=== PATIENT | male | born 1960 | race Caucasian/White ===

== ENCOUNTER 2021-10-19 22:33 | Inpatient (IN) | payer SELFPAY ==
[~2021-10-19 22:33] MED LIST: Iopamidol-370 76% 500 ML 1 ML ONE
[2021-10-19] MEDS ORDERED: Nitroglycerin 0.4 MG TAB 1 EACH ONE (22:54)
[2021-10-19 23:00] LABS: Hemoglobin 16.8 g/dL (14.0-18.0); Mean Corpuscular HGB CONC 33.9 g/dL (32.0-36.0); Mean Corpuscular Hemoglobin 33.7 pg (27.0-31.0); Mean Corpuscular Volume 99.5 fL (78.0-98.0); RBC Distribution Width 13.6 % (11.5-14.5); Red Blood Cell (RBC) Count 4.99 mill/uL (4.70-6.10)
[2021-10-19] MEDS ORDERED: Metoprolol Tartrate 5 MG/5 ML VIAL ONE (23:06)
[2021-10-19 23:14] LABS: #Eosinphils 0.1 thou/uL (0.0-0.7); #Lymphocytes 1.4 thou/uL (1.20-3.40); #Monocytes 0.9 thou/uL (0.11-0.59); #Neutrophils 6.6 thou/uL (1.40-6.50); %Basophils 0.4 % (0.0-1.0); %Eosinophils 1.2 % (0.0-10.0); %Lymphocytes 15.7 % (21.0-51.0); %Monocytes 9.5 % (0.0-10.0); %Neutrophils 73.2 % (42.0-75.0); Mean Platelet Volume 8.5 fL (7.4-10.4); Platelet Count 110 thou/uL (130-400); Platelet Morphology Comment Appears Decreased
[2021-10-19 23:18] LABS: ALT (SGPT) 30 U/L (8-55); AST (SGOT) 36 U/L (5-34); Albumin 4.8 g/dL (3.5-5.0); Alkaline Phosphatase 107 U/L (40-110); Anion Gap 19 mmol/L (10-20); BUN (Urea Nitrogen) 6 mg/dL (8.4-25.7); Bilirubin, Total 1.3 mg/dL (0.2-1.2); Calc. Creatinine Clearance 0 mL/min (70-130); Calcium 10.2 mg/dL (7.8-10.44); Carbon Dioxide 23 mmol/L (22-29); Chloride 100 mmol/L (98-107); Estimated GFR 103; Globulin 3.7 g/dL (2.4-3.5); Glucose 100 mg/dL (70-105); Lipase 164 U/L (8-78); Potassium 3.5 mmol/L (3.5-5.1); Protein, Total 8.5 g/dL (6.0-8.3); Sodium 138 mmol/L (136-145)
[2021-10-20] MEDS ORDERED: Aspirin 81 mg Enteric Coated Tablet ONE (00:04)
[2021-10-20] MEDS ORDERED: Aspirin Chewable 81 MG TAB ONE (00:05)
[2021-10-20] MEDS ORDERED: Nitroglycerin 2% Ointment 1 INCH/1 GM Packet ONE (00:31)
[2021-10-20] MEDS ORDERED: Acetaminophen 325 MG TAB PO PRN (01:42)
[2021-10-20] MEDS ORDERED: Gabapentin 300 MG CAP PO PRN (02:43)
[2021-10-20] MEDS ORDERED: hydrALAZINE 20 MG/ML VIAL SLOW IVP PRN (02:44)
[2021-10-20 04:03] VITALS: BMI 26.3
[2021-10-20 05:18] LABS: Troponin I 0.019 ng/mL (< 0.028)
[2021-10-20] MEDS: Enoxaparin Sodium 40 MG/0.4 ML SYRINGE SC SCH (08:51)
[2021-10-20] MEDS ORDERED: Regadenoson 0.4 MG/5 ML SYRINGE ONE (08:55)
[2021-10-20] MEDS ORDERED: Lisinopril 20 MG TAB PO SCH (09:00)
[2021-10-20] MEDS: Hydrochlorothiazide 25 MG TAB PO SCH (13:20)
[2021-10-20] MEDS ORDERED: Atenolol 50 MG TAB PO SCH (17:30)
[2021-10-20] MEDS ORDERED: Loratadine 5 MG/5 ML UDCUP PO SCH (18:00)
[2021-10-21] MEDS: Hydrochlorothiazide 25 MG TAB PO SCH (08:42)
[2021-10-21] MEDS: Enoxaparin Sodium 40 MG/0.4 ML SYRINGE SC SCH (08:44)
[2021-10-21] MEDS ORDERED: Iopamidol 370 76% 100 ML VIAL ONE (08:52)
[2021-10-21] MEDS ORDERED: Cetirizine HCl 5 MG/5 ML UDCUP PO SCH (09:00)
[2021-10-21] MEDS ORDERED: Atenolol 50 MG TAB PO SCH (09:00)
[2021-10-21] MEDS ORDERED: Communication Order-Pharmacy FS SCH (09:45)
[2021-10-21] MEDS ORDERED: Lidocaine 1% 50ML VIAL ONE (10:17)
[2021-10-21] MEDS ORDERED: Midazolam HCl 2 mg/2 ml Vial ONE (11:35)
[2021-10-21] MEDS ORDERED: Acetaminophen/Codeine 30-300mg Tablet PO PRN ×2 (12:00)
[2021-10-21] MEDS ORDERED: Nitroglycerin 0.4 MG TAB (25 Tab Bottle) SL PRN (12:00)
[2021-10-21] MEDS ORDERED: Sodium Chloride 0.9% 200 ML IV PRN (12:00)
[2021-10-21] MEDS: Loratadine 5 MG/5 ML UDCUP PO SCH (13:29)
[2021-10-21 16:11] LABS: ALT (SGPT) 26 U/L (8-55); AST (SGOT) 28 U/L (5-34); Albumin 4.2 g/dL (3.5-5.0); Alkaline Phosphatase 96 U/L (40-110); Anion Gap 16 mmol/L (10-20); BUN (Urea Nitrogen) 10 mg/dL (8.4-25.7); Bilirubin, Total 0.9 mg/dL (0.2-1.2); Calc. Creatinine Clearance 112 mL/min (70-130); Calcium 9.2 mg/dL (7.8-10.44); Carbon Dioxide 21 mmol/L (22-29); Chloride 106 mmol/L (98-107); Estimated GFR 101; Globulin 3.5 g/dL (2.4-3.5); Glucose 108 mg/dL (70-105); Potassium 3.4 mmol/L (3.5-5.1); Protein, Total 7.7 g/dL (6.0-8.3); Sodium 140 mmol/L (136-145)
[2021-10-22] MEDS: Loratadine 5 MG/5 ML UDCUP PO SCH (09:27)
[2021-10-22] MEDS: Hydrochlorothiazide 25 MG TAB PO SCH (09:27)
[2021-10-22 10:45] LABS: #Eosinphils 0.2 thou/uL (0.0-0.7); #Lymphocytes 1.1 thou/uL (1.20-3.40); #Monocytes 0.8 thou/uL (0.11-0.59); %Basophils 0.4 % (0.0-1.0); %Lymphocytes 11.7 % (21.0-51.0); %Monocytes 9.1 % (0.0-10.0); %Neutrophils 76.7 % (42.0-75.0); Hemoglobin 15.6 g/dL (14.0-18.0); Mean Corpuscular Hemoglobin 33.3 pg (27.0-31.0); Mean Platelet Volume 8.4 fL (7.4-10.4); Platelet Count 107 thou/uL (130-400); RBC Distribution Width 13.4 % (11.5-14.5); Red Blood Cell (RBC) Count 4.69 mill/uL (4.70-6.10); White Blood Cell (WBC) Count 9.2 thou/uL (4.8-10.8)
[2021-10-22 11:06] LABS: Cardiac Risk 1.8 (Less than 4.5)
[2021-10-22 11:20] VITALS: TEMP 98
[2021-10-22 15:26] VITALS: BP 158/92
== END 2021-10-22 16:22 | disposition home or self-care (01) | DRG 286 ==
LOC: ERS 22:33 → 2NO 10-20 01:26 → OBSVTOIN 10-21 09:15
PROVIDERS: ADMIT Student in an Organized Health Care Education/Training Program; ATTEND Student in an Organized Health Care Education/Training Program
PROC: 4A023N7 Measurement of Cardiac Sampling and Pressure, Left Heart, Percutaneous Approach (ICD-10-PCS; principal; 2021-10-21)
PROC: B2111ZZ Fluoroscopy of Multiple Coronary Arteries using Low Osmolar Contrast (ICD-10-PCS; 2021-10-21)
PROC: B2151ZZ Fluoroscopy of Left Heart using Low Osmolar Contrast (ICD-10-PCS; 2021-10-21)
DX: I11.0 Hypertensive heart disease with heart failure (principal); I50.21 Acute systolic (congestive) heart failure; I16.9 Hypertensive crisis, unspecified; I42.9 Cardiomyopathy, unspecified; I50.30 Unspecified diastolic (congestive) heart failure; R07.89 Other chest pain; G62.9 Polyneuropathy, unspecified; K21.9 Gastro-esophageal reflux disease without esophagitis; N40.0 Benign prostatic hyperplasia without lower urinary tract symptoms; I16.0 Hypertensive urgency; K76.0 Fatty (change of) liver, not elsewhere classified; E88.09 Other disorders of plasma-protein metabolism, not elsewhere classified; E78.5 Hyperlipidemia, unspecified; I34.0 Nonrheumatic mitral (valve) insufficiency; Z20.822 Contact with and (suspected) exposure to COVID-19
CPT/HCPCS: 36415; 71045; 71275; 74174; 78452; 80053; 80061; 83036; 83690; 83880; 84484; 85025; 93005; 93017; 93306; 93458; 94760; 96372; 96374; 99152; A9500; C1769; G0378; J1650; J2250; J2785; J3490; Q9967; U0003; U0005

== ENCOUNTER 2021-11-04 08:38 | Emergency (ER) | payer SELFPAY ==
[2021-11-04 09:06] LABS: #Basophils 0.1 thou/uL (0.0-0.2); #Eosinphils 0.2 thou/uL (0.0-0.7); #Lymphocytes 1.7 thou/uL (1.20-3.40); #Monocytes 0.8 thou/uL (0.11-0.59); #Neutrophils 6.3 thou/uL (1.40-6.50); %Basophils 0.6 % (0.0-1.0); %Eosinophils 1.9 % (0.0-10.0); %Monocytes 8.3 % (0.0-10.0); %Neutrophils 70.3 % (42.0-75.0); Hemoglobin 16.5 g/dL (14.0-18.0); Mean Corpuscular HGB CONC 33.9 g/dL (32.0-36.0); Mean Corpuscular Hemoglobin 33.7 pg (27.0-31.0); Mean Corpuscular Volume 99.5 fL (78.0-98.0); Mean Platelet Volume 7.3 fL (7.4-10.4); Platelet Count 195 thou/uL (130-400); RBC Distribution Width 13.4 % (11.5-14.5); Red Blood Cell (RBC) Count 4.88 mill/uL (4.70-6.10)
[2021-11-04 09:27] LABS: ALT (SGPT) 33 U/L (8-55); AST (SGOT) 34 U/L (5-34); Albumin 4.5 g/dL (3.5-5.0); Alkaline Phosphatase 105 U/L (40-110); Anion Gap 18 mmol/L (10-20); BUN (Urea Nitrogen) 6 mg/dL (8.4-25.7); Bilirubin, Total 1.3 mg/dL (0.2-1.2); Calc. Creatinine Clearance 0 mL/min (70-130); Calcium 9.6 mg/dL (7.8-10.44); Carbon Dioxide 22 mmol/L (22-29); Chloride 96 mmol/L (98-107); Estimated GFR 101; Globulin 3.3 g/dL (2.4-3.5); Glucose 124 mg/dL (70-105); Lipase 149 U/L (8-78); Protein, Total 7.8 g/dL (6.0-8.3); Sodium 133 mmol/L (136-145)
[2021-11-04] MEDS ORDERED: Potassium Chloride 20 MEQ TAB ONE (10:03)
[2021-11-04 10:18] LABS: Magnesium 1.9 mg/dL (1.6-2.6)
[2021-11-04] MEDS ORDERED: Nitroglycerin 0.4 MG TAB 1 EACH ONE ×2 (11:30→11:32)
== END 2021-11-04 13:52 | disposition home or self-care (01) ==
LOC: ERS 08:38
DX: I10 Essential (primary) hypertension (principal); E87.6 Hypokalemia; F17.290 Nicotine dependence, other tobacco product, uncomplicated; Z79.899 Other long term (current) drug therapy
CPT/HCPCS: 36415; 71045; 80053; 83690; 83735; 83880; 84484; 85025; 93005; 94760

== ENCOUNTER 2022-02-24 01:19 | Emergency (ER) | payer SELFPAY ==
[2022-02-24 02:44] LABS: #Basophils 0.1 thou/uL (0.0-0.2); #Eosinphils 0.3 thou/uL (0.0-0.7); #Lymphocytes 2.2 thou/uL (1.20-3.40); #Monocytes 0.8 thou/uL (0.11-0.59); #Neutrophils 9.4 thou/uL (1.40-6.50); %Basophils 0.4 % (0.0-1.0); %Eosinophils 2.6 % (0.0-10.0); %Lymphocytes 17.3 % (21.0-51.0); %Monocytes 6.5 % (0.0-10.0); %Neutrophils 73.2 % (42.0-75.0); Hemoglobin 14.4 g/dL (14.0-18.0); Mean Corpuscular HGB CONC 36.3 g/dL (32.0-36.0); Mean Corpuscular Hemoglobin 35.2 pg (27.0-31.0); Mean Platelet Volume 7.6 fL (7.4-10.4); Platelet Count 188 10x3/uL (130-400); RBC Distribution Width 11.6 % (11.5-14.5); White Blood Cell (WBC) Count 12.8 10x3/uL (4.8-10.8)
[2022-02-24 02:59] LABS: Acetaminophen Less than 10.0 mcg/mL (10.0-30.0); Alcohol 145 mg/dL (Less than 10); Salicylate Less than 8.0 mg/dL (15.0-30.0)
[2022-02-24 03:00] LABS: ALT (SGPT) 20 U/L (8-55); AST (SGOT) 21 U/L (5-34); Albumin 4.2 g/dL (3.4-4.8); Alcohol 139 mg/dL (Less than 10); Alkaline Phosphatase 77 U/L (40-110); Anion Gap 15 mmol/L (10-20); BUN (Urea Nitrogen) 9 mg/dL (8.4-25.7); Bilirubin, Total 0.3 mg/dL (0.2-1.2); Calc. Creatinine Clearance 0 mL/min (70-130); Calcium 9.2 mg/dL (7.8-10.44); Carbon Dioxide 25 mmol/L (23-31); Chloride 102 mmol/L (98-107); Estimated GFR 103; Globulin 2.9 g/dL (2.4-3.5); Glucose 88 mg/dL (80-115); Potassium 3.6 mmol/L (3.5-5.1); Protein, Total 7.1 g/dL (5.8-8.1); Sodium 138 mmol/L (136-145)
== END 2022-02-24 04:16 | disposition home or self-care (01) ==
LOC: ERS 01:19
DX: S30.0XXA Contusion of lower back and pelvis, initial encounter (principal); S00.81XA Abrasion of other part of head, initial encounter; F10.129 Alcohol abuse with intoxication, unspecified; I11.0 Hypertensive heart disease with heart failure; I50.9 Heart failure, unspecified; F17.210 Nicotine dependence, cigarettes, uncomplicated; X58.XXXA Exposure to other specified factors, initial encounter
CPT/HCPCS: 36415; 70450; 72125; 72128; 72131; 80053; 80307; 85025

== ENCOUNTER 2022-04-15 04:15 | Observation (INO) | payer OTHER, SELFPAY ==
[2022-04-15] MEDS ORDERED: Aspirin Chewable 81 MG TAB ONE (04:42)
[2022-04-15] MEDS ORDERED: Ondansetron PF 4 MG/2 ML Vial ONE (04:45)
[2022-04-15 05:49] LABS: Acetaminophen Less than 10.0 mcg/mL (10.0-30.0); Alcohol 86 mg/dL (Less than 10); Salicylate Less than 8.0 mg/dL (15.0-30.0)
[2022-04-15 05:54] LABS: ALT (SGPT) 17 U/L (8-55); AST (SGOT) 33 U/L (5-34); Albumin 3.9 g/dL (3.4-4.8); Alkaline Phosphatase 108 U/L (40-110); Anion Gap 24 mmol/L (10-20); BUN (Urea Nitrogen) 8 mg/dL (8.4-25.7); Bilirubin, Total 0.8 mg/dL (0.2-1.2); Calc. Creatinine Clearance 0 mL/min (70-130); Calcium 8.6 mg/dL (7.8-10.44); Carbon Dioxide 15 mmol/L (23-31); Chloride 101 mmol/L (98-107); Estimated GFR 106; Glucose 85 mg/dL (80-115); Potassium 4.2 mmol/L (3.5-5.1); Protein, Total 6.9 g/dL (5.8-8.1); Sodium 136 mmol/L (136-145)
[2022-04-15 06:46] LABS: Hemoglobin 15.4 g/dL (14.0-18.0); Mean Corpuscular HGB CONC 35.4 g/dL (32.0-36.0); Mean Corpuscular Hemoglobin 35.8 pg (27.0-31.0); RBC Distribution Width 12.3 % (11.5-14.5); Red Blood Cell (RBC) Count 4.31 mill/uL (4.70-6.10); White Blood Cell (WBC) Count 8.2 10x3/uL (4.8-10.8)
[2022-04-15 07:01] LABS: #Monocytes 0.5 thou/uL (0.11-0.59); #Neutrophils 6.6 thou/uL (1.40-6.50); %Basophils 0.3 % (0.0-1.0); %Eosinophils 0.4 % (0.0-10.0); %Lymphocytes 12.4 % (21.0-51.0); %Monocytes 6.2 % (0.0-10.0); %Neutrophils 80.6 % (42.0-75.0); Mean Platelet Volume 7.9 fL (7.4-10.4); Platelet Count 91 10x3/uL (130-400); Platelet Morphology Comment Appears Decreased; RBC Morphology Normal
[2022-04-15] MEDS ORDERED: LORazepam 2 MG/ML SYR.(CARPUJECT) ONE ×3 (07:13→12:51)
[2022-04-15] MEDS ORDERED: chlordiazePOXIDE HCl 25 MG CAP ONE (08:32)
[2022-04-15] MEDS ORDERED: cloNIDine 0.1 MG TAB PO PRN (09:48)
[2022-04-15] MEDS ORDERED: Lorazepam 2 MG/ML VIAL IM PRN (09:49)
[2022-04-15] MEDS ORDERED: Lorazepam 1 MG TAB PO PRN (09:49)
[2022-04-15] MEDS ORDERED: Ondansetron ODT 4 MG TAB PO PRN (09:49)
[2022-04-15] MEDS ORDERED: Acetaminophen 325 MG TAB PO PRN (09:51)
[2022-04-15] MEDS ORDERED: Senokot S 8.6-50 MG TAB PO PRN (09:51)
[2022-04-15] MEDS ORDERED: Calcium Carbonate 500 MG ChewTAB PO PRN (09:51)
[2022-04-15] MEDS ORDERED: Multivitamins, Adult 10 ML, Folic Acid 1 MG, Thiamine HCl 100 MG in Dextrose 5 %-0.45 %... IV SCH (10:00)
[2022-04-15] MEDS ORDERED: Thiamine HCl 100 MG, Folic Acid 1 MG in Dextrose 5 %-0.45 % NaCl 1,000 ML IVPB SCH (10:00)
[2022-04-15] MEDS ORDERED: Multivitamins, Adult 10 ML, Thiamine HCl 100 MG, Folic Acid 1 MG in Dextrose 5 %-0.45 %... IV SCH (10:00)
[2022-04-15] MEDS ORDERED: Electrolyte Replacement Protocol 1 EACH FS SCH (10:00)
[2022-04-15] MEDS ORDERED: Electrolyte Replacement Protocol 1 EACH FS PRN (10:00)
[2022-04-15 10:20] LABS: Troponin I Less than 0.010 ng/mL (< 0.028)
[2022-04-15 11:33] LABS: INR-International Normal Ratio 0.9; Prothrombin Time 12.4 sec (12.0-14.7)
[2022-04-15 11:40] LABS: Lactic Acid 0.6 mmol/L (0.5-2.2)
[2022-04-15 11:44] LABS: Anion Gap 18 mmol/L (10-20); BUN (Urea Nitrogen) 9 mg/dL (8.4-25.7); Calc. Creatinine Clearance 0 mL/min (70-130); Calcium 8.7 mg/dL (7.8-10.44); Carbon Dioxide 22 mmol/L (23-31); Chloride 100 mmol/L (98-107); Estimated GFR 104; Glucose 92 mg/dL (80-115); Magnesium 2.2 mg/dL (1.6-2.6); Phosphorus 3.4 mg/dL (2.3-4.7); Potassium 4.4 mmol/L (3.5-5.1); Sodium 136 mmol/L (136-145)
[2022-04-15] MEDS ORDERED: Electrolyte Replacement Protocol FS PRN (11:45)
[2022-04-15] MEDS ORDERED: Folic Acid 1 MG TAB PO SCH (11:45)
[2022-04-15] MEDS ORDERED: Multivit, Therapeutic 1 TAB PO SCH (11:45)
[2022-04-15 11:50] LABS: Troponin I Less than 0.010 ng/mL (< 0.028)
[2022-04-15] MEDS ORDERED: Thiamine HCl 200 MG/2 ML VIAL SLOW IVP SCH (12:00)
[2022-04-15] MEDS ORDERED: Folic Acid 1 MG TAB ONE (12:51)
[2022-04-15] MEDS ORDERED: Lorazepam 1 MG TAB ONE (13:00)
[2022-04-15] MEDS: Lorazepam 1 MG TAB PO SCH ×3 (13:01→23:44)
[2022-04-15] MEDS ORDERED: Iopamidol-370 76% 500 ML 1 ML ONE (17:11)
[2022-04-15 17:29] VITALS: BMI 29.9
[2022-04-15] MEDS ORDERED: Famotidine 20 MG TAB PO SCH (21:00)
[2022-04-15] MEDS ORDERED: Cyanocobalamin (Vitamin B-12) 1,000 MCG TAB PO SCH (21:00)
[2022-04-16 05:01] LABS: #Eosinphils 0.1 thou/uL (0.0-0.7); #Monocytes 0.4 thou/uL (0.11-0.59); #Neutrophils 4.1 thou/uL (1.40-6.50); %Basophils 0.1 % (0.0-1.0); %Eosinophils 1.3 % (0.0-10.0); %Lymphocytes 18.2 % (21.0-51.0); %Monocytes 6.3 % (0.0-10.0); Hemoglobin 13.9 g/dL (14.0-18.0); Mean Corpuscular HGB CONC 35.1 g/dL (32.0-36.0); Mean Corpuscular Hemoglobin 35.7 pg (27.0-31.0); Mean Platelet Volume 8.7 fL (7.4-10.4); Platelet Count 54 10x3/uL (130-400); RBC Distribution Width 12.2 % (11.5-14.5); White Blood Cell (WBC) Count 5.5 10x3/uL (4.8-10.8)
[2022-04-16 05:19] LABS: ALT (SGPT) 17 U/L (8-55); AST (SGOT) 28 U/L (5-34); Albumin 3.7 g/dL (3.4-4.8); Alkaline Phosphatase 99 U/L (40-110); Anion Gap 14 mmol/L (10-20); BUN (Urea Nitrogen) 12 mg/dL (8.4-25.7); Calc. Creatinine Clearance 129 mL/min (70-130); Calcium 8.6 mg/dL (7.8-10.44); Carbon Dioxide 24 mmol/L (23-31); Chloride 100 mmol/L (98-107); Estimated GFR 105; Globulin 2.7 g/dL (2.4-3.5); Glucose 89 mg/dL (80-115); Phosphorus 3.4 mg/dL (2.3-4.7); Potassium 3.6 mmol/L (3.5-5.1); Protein, Total 6.4 g/dL (5.8-8.1); Sodium 134 mmol/L (136-145)
[2022-04-16] MEDS: Lorazepam 1 MG TAB PO SCH (06:12)
[2022-04-16] MEDS ORDERED: Magnesium 2 GM/50 ML(in water) 2 GM in Premix Bag 1 BAG IVPB SCH (08:00)
[2022-04-16] MEDS ORDERED: Hydrochlorothiazide 25 MG TAB PO SCH (09:00)
[2022-04-16] MEDS ORDERED: Non-Formulary Item 1 EACH (Trazodone Hcl [Trazodone Hcl] 100 MG Tablet) PO SCH (09:00)
[2022-04-16] MEDS ORDERED: Multivit, Therapeutic 1 TAB PO SCH (09:00)
[2022-04-16] MEDS ORDERED: VALSARTAN 40 MG PO SCH (09:00)
[2022-04-16] MEDS ORDERED: traZODone HCl 50 MG TAB PO SCH (09:00)
[2022-04-16] MEDS ORDERED: Gabapentin 300 MG CAP PO SCH ×2 (09:00)
[2022-04-16] MEDS ORDERED: Folic Acid 1 MG TAB PO SCH (09:00)
[2022-04-16] MEDS ORDERED: Valsartan 80 MG TAB PO SCH (09:00)
[2022-04-16 09:29] VITALS: TEMP 98.6
[2022-04-16 09:35] VITALS: BP 135/72
[2022-04-16] MEDS ORDERED: Lorazepam 1 MG TAB PO PRN (09:49)
[2022-04-17] MEDS ORDERED: Lorazepam 1 MG TAB PO PRN (09:49)
[2022-04-17] MEDS ORDERED: Lorazepam 0.5 MG TAB PO SCH (18:00)
[2022-04-18] MEDS ORDERED: Lorazepam 0.5 MG TAB PO PRN (09:49)
[2022-04-18] MEDS ORDERED: Thiamine 100 MG TAB PO SCH (12:00)
== END 2022-04-16 11:05 | disposition home or self-care (01) ==
LOC: ERS 04:15 → ERHOLD 11:08 → 2SW 16:47
PROVIDERS: ADMIT Internal Medicine; ATTEND Internal Medicine
DX: I16.0 Hypertensive urgency (principal); I11.0 Hypertensive heart disease with heart failure; I50.22 Chronic systolic (congestive) heart failure; I42.8 Other cardiomyopathies; Z20.822 Contact with and (suspected) exposure to COVID-19; I34.0 Nonrheumatic mitral (valve) insufficiency; E87.29 Other acidosis; E87.1 Hypo-osmolality and hyponatremia; F10.229 Alcohol dependence with intoxication, unspecified; F17.210 Nicotine dependence, cigarettes, uncomplicated; N40.0 Benign prostatic hyperplasia without lower urinary tract symptoms; D53.9 Nutritional anemia, unspecified; G62.9 Polyneuropathy, unspecified; Z95.5 Presence of coronary angioplasty implant and graft; Z79.899 Other long term (current) drug therapy; Y90.4 Blood alcohol level of 80-99 mg/100 ml
CPT/HCPCS: 36415; 71045; 71275; 80053; 80307; 82010; 83605; 83735; 83880; 84100; 84484; 85025; 85379; 85610; 85730; 93005; 96367; 96375; G0378; J2060; J2405; J3411; J3475; J7042; Q9967; U0003; U0005

== ENCOUNTER 2022-05-10 14:05 | Emergency (ER) | payer OTHER | END 2022-05-10 15:00 | LOC: ERS 14:05 | DX: Z02.89 Encounter for other administrative examinations (principal) | CPT/HCPCS: 99282 ==

== ENCOUNTER 2022-05-11 20:25 | Observation (INO) | payer OTHER ==
[2022-05-11 21:14] LABS: #Eosinphils 0.2 thou/uL (0.0-0.7); #Lymphocytes 1.6 thou/uL (1.20-3.40); #Monocytes 0.8 thou/uL (0.11-0.59); %Basophils 0.5 % (0.0-1.0); %Eosinophils 2.1 % (0.0-10.0); %Lymphocytes 21.5 % (21.0-51.0); %Monocytes 10.1 % (0.0-10.0); %Neutrophils 65.8 % (42.0-75.0); Hemoglobin 13.7 g/dL (14.0-18.0); Mean Corpuscular HGB CONC 34.8 g/dL (32.0-36.0); Mean Corpuscular Hemoglobin 34.9 pg (27.0-31.0); Mean Platelet Volume 7.8 fL (7.4-10.4); Platelet Count 130 10x3/uL (130-400); RBC Distribution Width 12.3 % (11.5-14.5); Red Blood Cell (RBC) Count 3.93 mill/uL (4.70-6.10); White Blood Cell (WBC) Count 7.5 10x3/uL (4.8-10.8)
[2022-05-11 21:33] LABS: ALT (SGPT) 15 U/L (8-55); AST (SGOT) 23 U/L (5-34); Albumin 3.8 g/dL (3.4-4.8); Alkaline Phosphatase 105 U/L (40-110); Anion Gap 15 mmol/L (10-20); BUN (Urea Nitrogen) 7 mg/dL (8.4-25.7); Bilirubin, Total 0.4 mg/dL (0.2-1.2); Calc. Creatinine Clearance 0 mL/min (70-130); Calcium 8.4 mg/dL (7.8-10.44); Carbon Dioxide 20 mmol/L (23-31); Chloride 104 mmol/L (98-107); Estimated GFR 105; Globulin 2.7 g/dL (2.4-3.5); Glucose 100 mg/dL (80-115); Lipase 106 U/L (8-78); Potassium 3.7 mmol/L (3.5-5.1); Protein, Total 6.5 g/dL (5.8-8.1); Sodium 135 mmol/L (136-145)
[2022-05-11] MEDS ORDERED: Aspirin Chewable 81 MG TAB ONE (21:38)
[2022-05-11 22:14] LABS: Acetaminophen Less than 10.0 mcg/mL (10.0-30.0); Alcohol 272 mg/dL (Less than 10); Salicylate Less than 8.0 mg/dL (15.0-30.0)
[2022-05-12] MEDS ORDERED: Lorazepam 2 MG/ML VIAL SLOW IVP PRN (00:20)
[2022-05-12] MEDS ORDERED: LORazepam 2 MG/ML SYR.(CARPUJECT) ONE (00:27)
[2022-05-12] MEDS ORDERED: Ondansetron PF 4 MG/2 ML Vial IVP PRN (00:30)
[2022-05-12] MEDS ORDERED: Ondansetron ODT 4 MG TAB SL PRN (00:30)
[2022-05-12] MEDS ORDERED: Lorazepam 2 MG/ML VIAL IM PRN (01:07)
[2022-05-12] MEDS ORDERED: Ondansetron ODT 4 MG TAB PO PRN (01:07)
[2022-05-12] MEDS ORDERED: Acetaminophen 325 MG TAB PO PRN (01:10)
[2022-05-12] MEDS ORDERED: Acetaminophen 650 MG Suppository PR PRN (01:10)
[2022-05-12] MEDS ORDERED: Nitroglycerin 0.4 MG TAB (25 Tab Bottle) SL PRN (01:10)
[2022-05-12] MEDS ORDERED: Pantoprazole 40 MG VIAL IVP SCH ×2 (01:15→09:00)
[2022-05-12] MEDS ORDERED: Electrolyte Replacement Protocol 1 EACH FS SCH (01:15)
[2022-05-12] MEDS ORDERED: Thiamine HCl 200 MG/2 ML VIAL SLOW IVP SCH (01:15)
[2022-05-12] MEDS ORDERED: Sodium Chloride 0.9% 1,000 ML IV SCH (07:15)
[2022-05-12 07:46] LABS: #Eosinphils 0.1 thou/uL (0.0-0.7); #Lymphocytes 1.3 thou/uL (1.20-3.40); #Monocytes 0.5 thou/uL (0.11-0.59); #Neutrophils 4.8 thou/uL (1.40-6.50); %Basophils 0.5 % (0.0-1.0); %Eosinophils 2.2 % (0.0-10.0); %Lymphocytes 18.7 % (21.0-51.0); %Monocytes 7.9 % (0.0-10.0); %Neutrophils 70.7 % (42.0-75.0); Hemoglobin 13.8 g/dL (14.0-18.0); Mean Corpuscular Hemoglobin 33.5 pg (27.0-31.0); Mean Platelet Volume 7.8 fL (7.4-10.4); Platelet Count 127 10x3/uL (130-400); RBC Distribution Width 12.3 % (11.5-14.5); Red Blood Cell (RBC) Count 4.12 mill/uL (4.70-6.10); White Blood Cell (WBC) Count 6.7 10x3/uL (4.8-10.8)
[2022-05-12] MEDS ORDERED: Magnesium 2 GM/50 ML(in water) 2 GM in Premix Bag 1 BAG IVPB SCH (08:00)
[2022-05-12 08:11] LABS: Troponin I Less than 0.010 ng/mL (< 0.028)
[2022-05-12 08:13] LABS: Anion Gap 18 mmol/L (10-20); BUN (Urea Nitrogen) 7 mg/dL (8.4-25.7); Calc. Creatinine Clearance 0 mL/min (70-130); Calcium 8.8 mg/dL (7.8-10.44); Carbon Dioxide 20 mmol/L (23-31); Chloride 106 mmol/L (98-107); Estimated GFR 105; Glucose 77 mg/dL (80-115); Magnesium 1.8 mg/dL (1.6-2.6); Phosphorus 3.4 mg/dL (2.3-4.7); Potassium 3.5 mmol/L (3.5-5.1); Sodium 140 mmol/L (136-145)
[2022-05-12] MEDS ORDERED: Acetaminophen 325 MG TAB ONE (08:30)
[2022-05-12] MEDS ORDERED: Thiamine 100 MG TAB ONE ×2 (08:30→08:59)
[2022-05-12] MEDS ORDERED: Pantoprazole 40 MG VIAL ONE (08:30)
[2022-05-12] MEDS ORDERED: Potassium Chloride 20 MEQ TAB PO SCH (08:30)
[2022-05-12] MEDS ORDERED: Lorazepam 1 MG TAB ONE ×3 (08:41→14:46)
[2022-05-12] MEDS: Lorazepam 1 MG TAB PO SCH ×2 (08:46→08:47)
[2022-05-12] MEDS: Lorazepam 1 MG TAB PO PRN ×3 (08:46→15:06)
[2022-05-12] MEDS: Lactated Ringer's 1,000 ML IV SCH ×2 (08:47→12:23)
[2022-05-12] MEDS ORDERED: Aspirin Chewable 81 MG TAB ONE (08:55)
[2022-05-12] MEDS ORDERED: Potassium Chloride 20 MEQ TAB ONE (08:55)
[2022-05-12] MEDS ORDERED: Folic Acid 1 MG TAB ONE (08:55)
[2022-05-12] MEDS ORDERED: Folic Acid 1 MG TAB PO SCH (09:00)
[2022-05-12] MEDS ORDERED: VALSARTAN 40 MG PO SCH (09:00)
[2022-05-12] MEDS ORDERED: Valsartan 80 MG TAB PO SCH (09:00)
[2022-05-12] MEDS ORDERED: Multivit, Therapeutic 1 TAB PO SCH (09:00)
[2022-05-12] MEDS ORDERED: Hydrochlorothiazide 25 MG TAB PO SCH (09:00)
[2022-05-12] MEDS ORDERED: Aspirin Chewable 81 MG TAB PO SCH (09:00)
[2022-05-12] MEDS ORDERED: traMADol HCl 50 MG TAB PO PRN (12:01)
[2022-05-12] MEDS ORDERED: Ondansetron ODT 4 MG TAB ONE (12:19)
[2022-05-12] MEDS ORDERED: traMADol HCl 50 MG TAB ONE (12:19)
[2022-05-12 12:50] LABS: Amphetamine Not Detected (NotDetected); Barbiturates Screen Not Detected (NotDetected); Benzodiazepine Screen Detected (NotDetected); Cocaine Metabolite Screen Not Detected (NotDetected); Methadone Not Detected (NotDetected); Methamphetamine Not Detected (NotDetected); Opiate Screen Not Detected (NotDetected); Oxycodone Screen Not Detected (NotDetected); Phencyclidine (PCP) Not Detected (NotDetected); THC/Cannabinoid Screen Not Detected (NotDetected); Tricyclic Screen Not Detected (NotDetected)
[2022-05-12] MEDS ORDERED: cloNIDine 0.1 MG TAB PO PRN (15:14)
[2022-05-12] MEDS ORDERED: Nicotine 14 MG PATCH TD PRN (15:16)
[2022-05-12 15:34] VITALS: BP 158/94; TEMP 98.2
[2022-05-12] MEDS ORDERED: traZODone HCl 50 MG TAB PO SCH (21:00)
[2022-05-13] MEDS ORDERED: Lorazepam 1 MG TAB PO PRN (01:07)
[2022-05-13] MEDS ORDERED: Gabapentin 300 MG CAP PO SCH (09:00)
[2022-05-13] MEDS ORDERED: Spironolactone 25 MG TAB PO SCH (09:00)
[2022-05-13] MEDS ORDERED: Multivit, Therapeutic 1 TAB PO SCH (09:00)
[2022-05-14] MEDS ORDERED: Lorazepam 1 MG TAB PO PRN (01:07)
[2022-05-14] MEDS ORDERED: Lorazepam 0.5 MG TAB PO SCH (01:15)
[2022-05-15] MEDS ORDERED: Lorazepam 0.5 MG TAB PO PRN (01:07)
[2022-05-15] MEDS ORDERED: Thiamine 100 MG TAB PO SCH (09:00)
== END 2022-05-12 16:34 | disposition home or self-care (01) ==
LOC: ERS 20:25 → ERHOLD 05-12 00:11 → INTOOBSV 05-12 00:11
PROVIDERS: ADMIT Internal Medicine; ATTEND Internal Medicine
DX: R07.2 Precordial pain (principal); R10.13 Epigastric pain; F10.229 Alcohol dependence with intoxication, unspecified; I16.0 Hypertensive urgency; I11.0 Hypertensive heart disease with heart failure; I50.22 Chronic systolic (congestive) heart failure; N40.0 Benign prostatic hyperplasia without lower urinary tract symptoms; E87.1 Hypo-osmolality and hyponatremia; E83.42 Hypomagnesemia; E87.6 Hypokalemia; D53.9 Nutritional anemia, unspecified; I34.0 Nonrheumatic mitral (valve) insufficiency; Z79.899 Other long term (current) drug therapy; Y90.8 Blood alcohol level of 240 mg/100 ml or more
CPT/HCPCS: 36415; 36416; 71045; 80048; 80053; 80306; 80307; 83690; 83735; 84100; 84484; 85025; 93005; 96374; 99282; C9113; J2060; J3411; J3475; J7050; J7120; Q0162

== ENCOUNTER 2022-05-29 02:36 | Emergency (ER) | payer OTHER ==
[2022-05-29 03:35] LABS: #Eosinphils 0.1 thou/uL (0.0-0.7); #Lymphocytes 1.8 thou/uL (1.20-3.40); #Monocytes 0.6 thou/uL (0.11-0.59); #Neutrophils 5.6 thou/uL (1.40-6.50); %Basophils 0.6 % (0.0-1.0); %Eosinophils 1.7 % (0.0-10.0); %Lymphocytes 21.8 % (21.0-51.0); %Monocytes 7.2 % (0.0-10.0); %Neutrophils 68.7 % (42.0-75.0); Hemoglobin 16.7 g/dL (14.0-18.0); Mean Corpuscular HGB CONC 34.8 g/dL (32.0-36.0); Mean Corpuscular Hemoglobin 34.8 pg (27.0-31.0); Mean Platelet Volume 7.5 fL (7.4-10.4); Platelet Count 178 10x3/uL (130-400); RBC Distribution Width 12.9 % (11.5-14.5); White Blood Cell (WBC) Count 8.1 10x3/uL (4.8-10.8)
[2022-05-29 03:58] LABS: ALT (SGPT) 19 U/L (8-55); AST (SGOT) 28 U/L (5-34); Albumin 4.1 g/dL (3.4-4.8); Alkaline Phosphatase 116 U/L (40-110); Anion Gap 21 mmol/L (10-20); BUN (Urea Nitrogen) 6 mg/dL (8.4-25.7); Bilirubin, Total 0.3 mg/dL (0.2-1.2); Calc. Creatinine Clearance 0 mL/min (70-130); Calcium 8.9 mg/dL (7.8-10.44); Carbon Dioxide 20 mmol/L (23-31); Chloride 105 mmol/L (98-107); Estimated GFR 106; Globulin 3.2 g/dL (2.4-3.5); Glucose 91 mg/dL (80-115); Potassium 3.9 mmol/L (3.5-5.1); Protein, Total 7.3 g/dL (5.8-8.1); Sodium 142 mmol/L (136-145)
[2022-05-29] MEDS ORDERED: Ondansetron PF 4 MG/2 ML Vial ONE (05:18)
[2022-05-29 07:47] LABS: Troponin I Less than 0.010 ng/mL (< 0.028)
== END 2022-05-29 08:30 | disposition home or self-care (01) ==
LOC: ERS 02:36
DX: R07.9 Chest pain, unspecified (principal); I11.0 Hypertensive heart disease with heart failure; I50.9 Heart failure, unspecified; Z79.899 Other long term (current) drug therapy
CPT/HCPCS: 36415; 71045; 80053; 83880; 84484; 85025; 93005; 96374; J2405

== ENCOUNTER 2022-11-14 03:10 | Emergency (ER) | payer OTHER, SELFPAY ==
[2022-11-14] MEDS ORDERED: methylPREDNISolone Sod Succ/PF 125 MG/2 ML VIAL ONE (04:18)
[2022-11-14] MEDS ORDERED: cefTRIAXone (ROCEPHIN) 2 GM VIAL ONE (04:18)
[2022-11-14] MEDS ORDERED: Ipratropium/Albuterol 3 ML NEB ONE (04:51)
[2022-11-14 06:18] LABS: SARS-CoV-2 NAA Rapid Test Not Detected (NotDetected)
== END 2022-11-14 06:48 | disposition home or self-care (01) ==
LOC: ERS 03:10
DX: J06.9 Acute upper respiratory infection, unspecified (principal); I11.0 Hypertensive heart disease with heart failure; I50.9 Heart failure, unspecified; F17.290 Nicotine dependence, other tobacco product, uncomplicated; Z20.822 Contact with and (suspected) exposure to COVID-19
CPT/HCPCS: 71045; 94640; J0696; J2930; J7620

== ENCOUNTER 2022-11-17 02:56 | Emergency (ER) | payer SELFPAY ==
[2022-11-17 04:40] LABS: #Eosinphils 0.1 thou/uL (0.0-0.7); #Neutrophils 10.1 thou/uL (1.40-6.50); %Basophils 0.2 % (0.0-1.0); %Eosinophils 0.8 % (0.0-10.0); %Lymphocytes 19.5 % (21.0-51.0); %Monocytes 7.2 % (0.0-10.0); %Neutrophils 70.8 % (42.0-75.0); Hematocrit 36.5 % (42.0-52.0); Hemoglobin 12.4 g/dL (14.0-18.0); Mean Corpuscular Hemoglobin 30.8 pg (27.0-31.0); Mean Corpuscular Volume 90.8 fl (78.0-98.0); Mean Platelet Volume 9.6 fL (7.4-10.4); Platelet Count 272 10x3/uL (130-400); RBC Distribution Width 16.1 % (11.5-14.5); Red Blood Cell (RBC) Count 4.02 mill/uL (4.70-6.10); White Blood Cell (WBC) Count 14.3 10x3/uL (4.8-10.8)
[2022-11-17 05:02] LABS: ALT (SGPT) 19 U/L (8-55); AST (SGOT) 21 U/L (5-34); Albumin 4.3 g/dL (3.4-4.8); Alkaline Phosphatase 87 U/L (40-110); Anion Gap 18 mmol/L (10-20); BUN (Urea Nitrogen) 6 mg/dL (8.4-25.7); Bilirubin, Total 0.5 mg/dL (0.2-1.2); Calc. Creatinine Clearance 0 mL/min (70-130); Carbon Dioxide 23 mmol/L (23-31); Chloride 97 mmol/L (98-107); Estimated GFR 104; Glucose 101 mg/dL (80-115); Potassium 3.8 mmol/L (3.5-5.1); Protein, Total 7.3 g/dL (5.8-8.1); Sodium 134 mmol/L (136-145)
[2022-11-17 05:07] LABS: Troponin I Less than 0.010 ng/mL (< 0.028)
== END 2022-11-17 05:51 ==
LOC: ERS 02:56 → EEVIPCON 02:56 → ERS 05:51
DX: J44.1 Chronic obstructive pulmonary disease with (acute) exacerbation (principal); R07.9 Chest pain, unspecified; I11.0 Hypertensive heart disease with heart failure; I50.9 Heart failure, unspecified; F17.290 Nicotine dependence, other tobacco product, uncomplicated
CPT/HCPCS: 36415; 71045; 80053; 84484; 85025; 85379; 93005; 94640

== ENCOUNTER 2022-11-17 13:46 | Inpatient (IN) | payer OTHER, SELFPAY ==
[2022-11-17] MEDS ORDERED: Multivit, Therapeutic 1 TAB PO SCH (14:30)
[2022-11-17 14:40] LABS: #Eosinphils 0.1 thou/uL (0.0-0.7); #Monocytes 0.9 thou/uL (0.11-0.59); #Neutrophils 7.4 thou/uL (1.40-6.50); %Basophils 0.4 % (0.0-1.0); %Eosinophils 1.4 % (0.0-10.0); %Lymphocytes 16.8 % (21.0-51.0); %Monocytes 8.2 % (0.0-10.0); %Neutrophils 71.9 % (42.0-75.0); Hematocrit 35.5 % (42.0-52.0); Hemoglobin 12.2 g/dL (14.0-18.0); Mean Corpuscular HGB CONC 34.4 g/dL (32.0-36.0); Mean Corpuscular Hemoglobin 31.1 pg (27.0-31.0); Mean Corpuscular Volume 90.6 fl (78.0-98.0); Mean Platelet Volume 9.7 fL (7.4-10.4); Platelet Count 232 10x3/uL (130-400); RBC Distribution Width 16.3 % (11.5-14.5); Red Blood Cell (RBC) Count 3.92 mill/uL (4.70-6.10); White Blood Cell (WBC) Count 10.3 10x3/uL (4.8-10.8)
[2022-11-17] MEDS ORDERED: Diazepam 5 MG TAB ONE (14:46)
[2022-11-17] MEDS ORDERED: Ondansetron PF 4 MG/2 ML Vial ONE (14:46)
[2022-11-17] MEDS ORDERED: Diazepam 10 MG/2 ML SYRINGE ONE ×2 (14:49→16:02)
[2022-11-17 14:58] LABS: ALT (SGPT) 20 U/L (8-55); AST (SGOT) 23 U/L (5-34); Albumin 4.6 g/dL (3.4-4.8); Alkaline Phosphatase 81 U/L (40-110); Anion Gap 14 mmol/L (10-20); BUN (Urea Nitrogen) 9 mg/dL (8.4-25.7); Bilirubin, Total 0.5 mg/dL (0.2-1.2); Calc. Creatinine Clearance 0 mL/min (70-130); Calcium 9.6 mg/dL (7.8-10.44); Carbon Dioxide 27 mmol/L (23-31); Chloride 98 mmol/L (98-107); Estimated GFR 101; Globulin 2.6 g/dL (2.4-3.5); Glucose 94 mg/dL (80-115); Lipase 129 U/L (8-78); Protein, Total 7.2 g/dL (5.8-8.1); Sodium 135 mmol/L (136-145)
[2022-11-17 15:01] LABS: Troponin I Less than 0.010 ng/mL (< 0.028)
[2022-11-17 15:30] LABS: Bacteria/HPF None Seen HPF (None Seen); Bilirubin Negative (Negative); Blood, Urine Negative (Negative); CAUTI Indications for Culture Alt mental st,lethar; Calcium Oxalate Crystals 3+ HPF (None Seen); Clarity Clear (Clear); Glucose, Urine (Dipstick) Normal (Negative); Ketone, Urine Trace mg/dL (Negative); Leukocyte 25 Leu/uL (Negative); Nitrite Negative (Negative); Protein, Urine (Dipstick) 20 mg/dL (Neg-Trace); RBC/HPF 0-3 HPF (0-3); Specific Gravity, Urine 1.025 (1.002-1.036); Squamous Epithelial None Seen HPF (0-3); pH, Urine 5.5 (5.0-9.0)
[2022-11-17 15:36] LABS: Urine Culture Reflex No No
[2022-11-17] MEDS ORDERED: Ondansetron PF 4 MG/2 ML Vial IVP PRN (15:45)
[2022-11-17] MEDS ORDERED: Acetaminophen 325 MG TAB PO PRN (15:45)
[2022-11-17] MEDS ORDERED: Calcium Carbonate 500 MG ChewTAB PO PRN (15:45)
[2022-11-17] MEDS ORDERED: Ondansetron ODT 4 MG TAB PO PRN (15:47)
[2022-11-17] MEDS ORDERED: Lorazepam 1 MG TAB PO PRN (15:47)
[2022-11-17] MEDS ORDERED: Lorazepam 2 MG/ML VIAL SLOW IVP PRN (15:49)
[2022-11-17] MEDS ORDERED: Lidocaine 2% Viscous Solution 10 ML, Aluminum & Magnesium Hydroxide 30 ML SSW SCH (16:00)
[2022-11-17] MEDS ORDERED: Electrolyte Replacement Protocol 1 EACH FS SCH (16:00)
[2022-11-17] MEDS ORDERED: Thiamine HCl 200 MG/2 ML VIAL SLOW IVP SCH (16:00)
[2022-11-17] MEDS ORDERED: cloNIDine 0.1mg/24 Hour PATCH TD SCH (17:00)
[2022-11-17] MEDS ORDERED: Multivitamins, Adult 10 ML, Folic Acid 1 MG, Thiamine HCl 100 MG in Dextrose 5 %-0.45 %... IV SCH (17:00)
[2022-11-17 17:30] VITALS: BMI 28.7
[2022-11-17] MEDS: Pantoprazole 40 MG VIAL IVP SCH (20:17)
[2022-11-17 20:50] LABS: Troponin I Less than 0.010 ng/mL (< 0.028)
[2022-11-17] MEDS ORDERED: Folic Acid 1 MG TAB PO SCH (21:00)
[2022-11-17] MEDS: chlordiazePOXIDE HCl 5 MG CAP PO SCH (21:40)
[2022-11-17] MEDS ORDERED: Magnesium 2 GM/50 ML(in water) 2 GM in Premix Bag 1 BAG IVPB SCH (23:00)
[2022-11-18 04:51] LABS: #Eosinphils 0.2 thou/uL (0.0-0.7); #Monocytes 0.7 thou/uL (0.11-0.59); #Neutrophils 7.1 thou/uL (1.40-6.50); %Basophils 0.3 % (0.0-1.0); %Eosinophils 1.8 % (0.0-10.0); %Lymphocytes 16.3 % (21.0-51.0); %Neutrophils 73.7 % (42.0-75.0); Hematocrit 31.9 % (42.0-52.0); Hemoglobin 10.5 g/dL (14.0-18.0); Mean Corpuscular HGB CONC 32.9 g/dL (32.0-36.0); Mean Corpuscular Hemoglobin 30.9 pg (27.0-31.0); Mean Platelet Volume 9.4 fL (7.4-10.4); Platelet Count 169 10x3/uL (130-400); RBC Distribution Width 16.3 % (11.5-14.5); White Blood Cell (WBC) Count 9.7 10x3/uL (4.8-10.8)
[2022-11-18 05:21] LABS: ALT (SGPT) 12 U/L (8-55); AST (SGOT) 14 U/L (5-34); Albumin 3.7 g/dL (3.4-4.8); Alkaline Phosphatase 68 U/L (40-110); Anion Gap 9 mmol/L (10-20); BUN (Urea Nitrogen) 8 mg/dL (8.4-25.7); Bilirubin, Total 0.5 mg/dL (0.2-1.2); Calc. Creatinine Clearance 123 mL/min (70-130); Calcium 8.5 mg/dL (7.8-10.44); Carbon Dioxide 30 mmol/L (23-31); Chloride 103 mmol/L (98-107); Estimated GFR 101; Globulin 1.9 g/dL (2.4-3.5); Glucose 99 mg/dL (80-115); Potassium 3.8 mmol/L (3.5-5.1); Protein, Total 5.6 g/dL (5.8-8.1); Sodium 138 mmol/L (136-145)
[2022-11-18 05:40] LABS: Mean Corpuscular Volume 93.8 fl (78.0-98.0)
[2022-11-18] MEDS ORDERED: Thiamine HCl 200 MG/2 ML VIAL SLOW IVP SCH (09:00)
[2022-11-18] MEDS ORDERED: Multivit, Therapeutic 1 TAB PO SCH (09:00)
[2022-11-18] MEDS: chlordiazePOXIDE HCl 5 MG CAP PO SCH ×2 (09:10→16:42)
[2022-11-18] MEDS: Pantoprazole 40 MG VIAL IVP SCH (09:11)
[2022-11-18 15:41] VITALS: BP 165/84; TEMP 98
[2022-11-18] MEDS ORDERED: Lorazepam 1 MG TAB PO PRN (15:47)
[2022-11-19] MEDS ORDERED: Lorazepam 1 MG TAB PO PRN (15:47)
[2022-11-20] MEDS ORDERED: Thiamine 100 MG TAB PO SCH (09:00)
[2022-11-20] MEDS ORDERED: Lorazepam 0.5 MG TAB PO PRN (15:47)
== END 2022-11-18 19:34 | disposition left against medical advice (07) | DRG 894 ==
LOC: ERS 13:46 → EEVIPCON 13:46 → 2SW 15:40 → OBSVTOIN 11-18 15:10
PROVIDERS: ADMIT Family Medicine; ATTEND Student in an Organized Health Care Education/Training Program
DX: F10.231 Alcohol dependence with withdrawal delirium (principal); I50.22 Chronic systolic (congestive) heart failure; J44.1 Chronic obstructive pulmonary disease with (acute) exacerbation; F10.221 Alcohol dependence with intoxication delirium; I11.0 Hypertensive heart disease with heart failure; R07.89 Other chest pain; F17.210 Nicotine dependence, cigarettes, uncomplicated; R07.9 Chest pain, unspecified; Z98.890 Other specified postprocedural states; Z79.899 Other long term (current) drug therapy
CPT/HCPCS: 36415; 71045; 80053; 81001; 83690; 83735; 83880; 84439; 84443; 84481; 84484; 85025; 85379; 93005; 94640; 96361; 96365; 96372; 96375; 96376; C9113; G0378; J1650; J2405; J3360; J3411; J3475; J3490; J7042

== ENCOUNTER 2022-11-22 21:35 | Emergency (ER) | payer SELFPAY ==
[2022-11-22 23:22] LABS: #Basophils 0.1 thou/uL (0.0-0.2); #Eosinphils 0.3 thou/uL (0.0-0.7); #Monocytes 0.9 thou/uL (0.11-0.59); #Neutrophils 6.4 thou/uL (1.40-6.50); %Basophils 0.7 % (0.0-1.0); %Eosinophils 2.9 % (0.0-10.0); %Lymphocytes 26.8 % (21.0-51.0); %Monocytes 8.9 % (0.0-10.0); Hemoglobin 10.9 g/dL (14.0-18.0); Mean Corpuscular HGB CONC 32.1 g/dL (32.0-36.0); Mean Corpuscular Hemoglobin 30.4 pg (27.0-31.0); Mean Platelet Volume 9.3 fL (7.4-10.4); Platelet Count 163 10x3/uL (130-400); RBC Distribution Width 16.5 % (11.5-14.5); Red Blood Cell (RBC) Count 3.58 mill/uL (4.70-6.10); White Blood Cell (WBC) Count 10.6 10x3/uL (4.8-10.8)
[2022-11-22 23:47] LABS: ALT (SGPT) 20 U/L (8-55); AST (SGOT) 22 U/L (5-34); Albumin 3.9 g/dL (3.4-4.8); Alkaline Phosphatase 77 U/L (40-110); Anion Gap 17 mmol/L (10-20); BUN (Urea Nitrogen) 6 mg/dL (8.4-25.7); Bilirubin, Total 0.3 mg/dL (0.2-1.2); Calc. Creatinine Clearance 0 mL/min (70-130); Calcium 8.6 mg/dL (7.8-10.44); Carbon Dioxide 23 mmol/L (23-31); Chloride 105 mmol/L (98-107); Estimated GFR 103; Globulin 2.4 g/dL (2.4-3.5); Glucose 97 mg/dL (80-115); Potassium 3.9 mmol/L (3.5-5.1); Protein, Total 6.3 g/dL (5.8-8.1); Sodium 141 mmol/L (136-145)
[2022-11-22 23:50] LABS: Troponin I Less than 0.010 ng/mL (< 0.028)
[2022-11-23] MEDS ORDERED: Iopamidol-370 76% 500 ML MDV (1 ML CHARGE) ONE (09:42)
== END 2022-11-23 03:19 | disposition home or self-care (01) ==
LOC: ERS 21:35
DX: R07.9 Chest pain, unspecified (principal); I11.0 Hypertensive heart disease with heart failure; I50.9 Heart failure, unspecified; J44.9 Chronic obstructive pulmonary disease, unspecified; Z79.899 Other long term (current) drug therapy
CPT/HCPCS: 71045; 71275; 80053; 83735; 83880; 84484; 85025; 85379; 93005; Q9967

== ENCOUNTER 2022-11-25 04:31 | Emergency (ER) | payer SELFPAY ==
[2022-11-25 06:50] LABS: #Eosinphils 0.2 thou/uL (0.0-0.7); #Monocytes 0.7 thou/uL (0.11-0.59); #Neutrophils 3.6 thou/uL (1.40-6.50); %Basophils 0.7 % (0.0-1.0); %Eosinophils 3.6 % (0.0-10.0); %Lymphocytes 22.3 % (21.0-51.0); %Monocytes 11.6 % (0.0-10.0); %Neutrophils 61.3 % (42.0-75.0); Hematocrit 34.7 % (42.0-52.0); Hemoglobin 11.4 g/dL (14.0-18.0); Mean Corpuscular HGB CONC 32.9 g/dL (32.0-36.0); Mean Corpuscular Hemoglobin 31.1 pg (27.0-31.0); Mean Corpuscular Volume 94.6 fl (78.0-98.0); Mean Platelet Volume 9.5 fL (7.4-10.4); Platelet Count 148 10x3/uL (130-400); RBC Distribution Width 16.6 % (11.5-14.5); Red Blood Cell (RBC) Count 3.67 mill/uL (4.70-6.10); White Blood Cell (WBC) Count 5.8 10x3/uL (4.8-10.8)
[2022-11-25 07:10] LABS: Troponin I Less than 0.010 ng/mL (< 0.028)
[2022-11-25 07:12] LABS: ALT (SGPT) 16 U/L (8-55); AST (SGOT) 19 U/L (5-34); Albumin 4.1 g/dL (3.4-4.8); Alkaline Phosphatase 85 U/L (40-110); Anion Gap 13 mmol/L (10-20); BUN (Urea Nitrogen) 4 mg/dL (8.4-25.7); Bilirubin, Total 0.3 mg/dL (0.2-1.2); Calc. Creatinine Clearance 0 mL/min (70-130); Carbon Dioxide 26 mmol/L (23-31); Chloride 103 mmol/L (98-107); Estimated GFR 105; Globulin 2.5 g/dL (2.4-3.5); Glucose 84 mg/dL (80-115); Protein, Total 6.6 g/dL (5.8-8.1); Sodium 138 mmol/L (136-145)
== END 2022-11-25 07:57 | disposition home or self-care (01) ==
LOC: ERS 04:31
DX: J20.9 Acute bronchitis, unspecified (principal); J44.9 Chronic obstructive pulmonary disease, unspecified; I11.0 Hypertensive heart disease with heart failure; I50.9 Heart failure, unspecified; F17.290 Nicotine dependence, other tobacco product, uncomplicated; Z79.899 Other long term (current) drug therapy
CPT/HCPCS: 36415; 71045; 80053; 83880; 84484; 85025; 94640